=== PATIENT | male | born 1955 | race Hispanic/Latino ===

== ENCOUNTER 2023-06-12 08:36 | Day surgery (SDC) | payer MEDICARE ==
[2023-06-12] VITALS (11 sets, daily range): BP systolic 95–149; BP diastolic 57–92; PULSE 75–95; RESP 12–20
[~2023-06-12] VITALS: Ht 157.5 cm; Wt 123.8 kg
[~2023-06-12 08:36] MED LIST: AEC81 PO; ATOR20TA65 PO; METF-526 PO; METO-409 PO; SEMA0.258 SQ; TAMS-1 PO; VITAMIN D2 PO
[2023-06-12] MEDS ORDERED: PROPOFOL 10 MG/ML 20ML VIAL IV ONE (10:25)
[2023-06-12] MEDS ORDERED: LIDOCAINE HCL 400MG/20ML VIAL ONE (10:25)
== END 2023-06-12 12:00 | disposition home or self-care (01) ==
LOC: ENDO 08:36 → DAH 08:36 → ENDO 12:00
PROVIDERS: ATTEND Internal Medicine Gastroenterology
DX: K92.1 Melena (principal); K62.1 Rectal polyp; I10 Essential (primary) hypertension; E78.5 Hyperlipidemia, unspecified; K59.04 Chronic idiopathic constipation; E11.9 Type 2 diabetes mellitus without complications; E03.9 Hypothyroidism, unspecified; E66.9 Obesity, unspecified; Z68.43 Body mass index [BMI] 50.0-59.9, adult; F17.210 Nicotine dependence, cigarettes, uncomplicated; F12.90 Cannabis use, unspecified, uncomplicated; Z79.82 Long term (current) use of aspirin; Z79.84 Long term (current) use of oral hypoglycemic drugs; Z79.899 Other long term (current) drug therapy; Z79.890 Hormone replacement therapy; Z98.890 Other specified postprocedural states
CPT/HCPCS: 82948 ×2; 45380; J3490; J2704; A4620; A4215 ×2; A4223; A7002; A4222; A4221; A4663; A4216; J7030; A4606